=== PATIENT | male | born 1975 | race Caucasian/White ===

== ENCOUNTER 2023-01-05 15:07 | Emergency (ER) | payer OTHER, SELFPAY ==
[2023-01-05 15:25] VITALS: BP 139/81; PULSE 120; RESP 20; TEMP 37.2; O2SAT 100
[2023-01-05 15:26] VITALS: BP 139/81; PULSE 120; RESP 20; TEMP 37.2; O2SAT 100
--- NOTE | 2023-01-05 15:33 | ED.GENADULT ---
HPI - General Adult General Chief complaint: Extremity Injury, Lower Stated complaint: bilateral leg swelling Time Seen by Provider: 01/05/23 15:33 Source: patient Mode of arrival: ambulatory Limitations: no limitations History of Present Illness HPI narrative: 47 y/o male presented for c/o swelling from bilateral lower extremities to abdomen for 1 week. States lower abdomen feels tight and bloated. Denies scrotal swelling. States he has been elevating his legs after work and in the night, but denies any improvement in swelling in the morning. After a weekend of vomiting and diarrhea resulting in leg cramping, he admits to increasing water intake for about 3 weeks. He states he drinks approximately 88 oz of water a day. He denies increase in cough or shortness of breath from baseline. States he smokes about 1/2-1 pack per day, smokes marijuana. Drinks at least 2-3 beers or cocktails daily. Denies salt increase. He denies chest pain, palpitations, dizziness, decreased urine output, nausea, vomiting, diarrhea, fevers or chills. Endorses mother with CHF, Father with atrial flutter. No PCP. Related Data Home Medications Medication Instructions Recorded Confirmed No Home Medications 01/05/23 01/05/23 Allergies Allergy/AdvReac Type Severity Reaction Status Date / Time No Known Allergies Allergy Verified 01/05/23 15:26 Review of Systems Review of Systems: CONSTITUTIONAL: Denies body aches, fever, chills, or sweats. EYES: Denies visual changes, redness, or discharge. ENT: Denies rhinorrhea, congestion, sore throat, or otalgia. CARDIOVASCULAR: Denies chest pain, palpitations, Reports BLE edema. RESPIRATORY: Denies cough or dyspnea. GASTROINTESTINAL: Denies abdominal pain, nausea, vomiting, or diarrhea. GENITOURINARY: Denies change in urinary output SKIN: Denies rash, itching, or wounds. MUSCULOSKELETAL: Denies back pain, joint pain, or myalgia. NEUROLOGIC: Denies headache, numbness, tingling, or weakness. All systems reviewed & are unremarkable except as noted in HPI and below PMFSH Past Medical History Medical History (Updated 01/05/23 @ 16:09 by Heena Edgar APRN) Patient denies significant medical history Right ankle injury Family History Family History (Updated 04/10/23 @ 16:00 by Heena Edgar APRN) Mother CHF (congestive heart failure) Father Atrial flutter Social History Social History (Updated 01/05/23 @ 15:58 by Heena Edgar APRN) Smoking packs per day: 1 Smoking cigarettes per day: 20.0 Smoking status: Current some day smoker Alcohol intake: current Drinks per week: 20 Alcohol use details: 2-3 beers daily or 2-3 cocktails daily Substance use: current Substance use type: marijuana Currently Unemployed: No Comments At time of signature, I have reviewed and agree with nursing past medical, surgical, social and family history unless otherwise noted. Please see nursing chart for further information. There is no relevant family history pertinent to the presenting complaint Exam Narrative: GENERAL: Well-appearing, in no acute distress. HEAD: Normocephalic, atraumatic. EYES: EOMI. No redness or drainage. Conjunctivae normal. ENT: Mucous membranes pink and moist. No rhinorrhea. NECK: Normal AROM. Supple. CHEST: No respiratory distress. Clear to auscultation. HEART: Tachycardic and Regular, faint murmur appreciated. Normal peripheral pulses. ABDOMEN: Distended/round, nontender, normal active bowel sounds. EXTREMITIES: 3+ pitting BLE edema to hips. Normal range of motion. SKIN: Warm, dry, no rash. Capillary refill normal. Normal skin turgor. NEURO: No focal deficits. Alert and oriented x3. Gait steady. PSYCH: Normal affect. Course Course Emergency Course: Patient is aware of diagnosis, understands and agrees to treatment plan. Anticipatory guidance given. Portions of this record may have been created with voice recognition software Level o
== END 2023-01-05 15:52 | disposition short-term general hospital (02) ==
PROVIDERS: Emergency Provider Nurse Practitioner Family
DX: R60.0 Localized edema (principal); F17.210 Nicotine dependence, cigarettes, uncomplicated
CPT/HCPCS: 99212; G0463

== ENCOUNTER 2023-01-05 16:15 | Emergency (ER) | payer OTHER, SELFPAY ==
--- NOTE | ~2023-01-05 | US_ITS ---
EXAMINATION: US venous doppler [facility] DATE: 01/05/2023 17:01 INDICATION: Bilateral lower leg swelling . TECHNIQUE: Grayscale images without and with compression and Doppler images of the bilateral lower ex tremity veins were obtained. COMPARISON: None FINDINGS: The right common femoral vein, profunda (deep) femoral vein, femoral vein, popliteal vein, peroneal v ein, posterior tibial veins, gastrocnemius vein, and greater saphenous vein are patent. Leg edema. The left common femoral vein, profunda (deep) femoral vein, femoral vein, popliteal vein, peroneal v ein, posterior tibial veins, gastrocnemius vein, and greater saphenous vein are patent. Leg edema. IMPRESSION: 1. Patent bilateral lower extremity veins. No evidence of deep venous thrombosis. Reviewed, dictated and finalized at location K. IMPRESSION: 1. Patent bilateral lower extremity veins. No evidence of deep venous thrombos is.
--- NOTE | ~2023-01-05 | XR_ITS ---
EXAMINATION: XR chest 2V Exam Date/Time: 01/05/2023 17:15 CDT HISTORY: BL edema, SWELLING FOR 6 DAYS, SMOKER Comparison: 04/07/2019. RESULT: Lines, tubes, and devices: None. Lungs and pleura: Diffuse reticulonodular opacities with cuffing. Left posterior angle blunting. Cardiomediastinal silhouette: Stable. Other: No acute osseous or upper abdominal finding. IMPRESSION: Respiratory bronchiolitis. Small left pleural effusion. Reviewed, dictated and finalized at location K.
[2023-01-05 16:27] VITALS: BP 150/86; PULSE 119; RESP 16; TEMP 37.2; O2SAT 100
[2023-01-05 16:48] LABS: Basophils Absolute Auto 0.2 K/mm3 (0.0-0.1); Basophils Percent Auto 1.5 % (0.2-1.2); Eosinophils Absolute Auto 0.7 K/mm3 (0-0.3); Eosinophils Percent Auto 6.6 % (0-4.4); Hematocrit 29.2 % (42.0-52.0); Hemoglobin 8.9 g/dL (14.0-18.0); Immature Granulocyte Absolute 0.05 K/mm3 (0.00-0.031); Immature Granulocyte Percent A 0.5 % (0-0.5); Lymphocytes Absolute Auto 2.47 K/mm3 (0.9-3.2); Lymphocytes Percent Auto 23.9 % (18.3-44.2); Mean Corpuscular HGB Conc 30.5 g/dl (32-36); Mean Corpuscular Hemoglobin 27.1 pg (26-34); Mean Platelet Volume 9.2 fl (7.4-10.4); Monocytes Absolute Auto 1.2 K/mm3 (0.1-0.6); Monocytes Percent Auto 11.2 % (2.6-8.5); Neutrophils Absolute Auto 5.8 K/mm3 (1.3-6.7); Neutrophils Percent Auto 56.3 % (45.5-73.1); Platelet Count Result 204 k/mm3 (150-375); Red Blood Count 3.28 M/mm3 (4.6-6.20); White Blood Count 10.3 K/mm3 (4.5-10.0)
[2023-01-05 16:58] LABS: Anion Gap 5 mmol/L (8-16); Blood Urea Nitrogen 6 mg/dL (9-20); Calcium 7.6 mg/dL (8.4-10.2); Carbon Dioxide 26 mmol/L (22-30); Chloride 105 mmol/L (98-107); Estimated Glomerular Filt Rate > 60; Glucose 100 mg/dL (65-110); Potassium 3.9 mmol/L (3.4-5.0); Sodium 136 mmol/L (137-145)
[2023-01-05 17:03] LABS: INR 1.2; Prothrombin Time 14.9 Seconds (11.1-14.7)
[2023-01-05 17:04] LABS: Partial Thromboplastin Time 32.7 SECONDS (22.3-36.8)
[2023-01-05 19:24] LABS: NT Pro B Type Natriuretic Pept 145 pg/mL (19.9-100)
[2023-01-05 19:46] VITALS: BP 150/96; PULSE 117; RESP 20; O2SAT 100
--- NOTE | 2023-01-05 20:01 | ED.GENADULT ---
HPI - General Adult General Chief complaint: Extremity Problem,Nontraumatic Stated complaint: Lower limb swelling Time Seen by Provider: 01/05/23 19:35 Source: patient Mode of arrival: ambulatory Limitations: no limitations History of Present Illness HPI narrative: 47-year-old otherwise healthy here with complaints of bilateral leg swelling for past few days to weeks. He states he is on the feet most of the time. He denies any shortness of breath, no chest pain. She states that he has not seen a doctor for several years he just got his insurance through his employment he is going to find a new doctor. Denies any alcohol or liver or kidney problems. Onset (ago): week(s) (1) Radiation: non-radiation Relieving factors: none Exacerbating factors: none Associated symptoms: denies other symptoms Related Data Allergies Allergy/AdvReac Type Severity Reaction Status Date / Time No Known Allergies Allergy Verified 01/05/23 15:26 Review of Systems Review of Systems: All systems reviewed & are unremarkable except as noted in HPI and below Constitutional: Constitutional: Reports no additional constitutional complaints Eyes: Eyes: Reports no additional eye complaints ENT: Reports system reviewed and no additional complaints, except as documented Cardiovascular: Cardiovascular: Reports no additional cardiovascular complaints Respiratory: Respiratory: Reports no additional respiratory complaints Gastrointestinal: Gastrointestinal: Reports no additional gastrointestinal complaints Musculoskeletal: Musculoskeletal: Reports as per HPI [facility] Past Medical History Medical History Patient denies significant medical history Right ankle injury Family History Family History Mother CHF (congestive heart failure) Father Atrial flutter Social History Social History Smoking packs per day: 1 Smoking cigarettes per day: 20.0 Smoking status: Current some day smoker Alcohol intake: current Drinks per week: 20 Alcohol use details: 2-3 beers daily or 2-3 cocktails daily Substance use: current Substance use type: marijuana Currently Unemployed: No Exam Narrative: GENERAL: Well-appearing, well-nourished, and in no acute distress. HEAD: Normocephalic, atraumatic. EYES: PERRLA and EOMI NECK: Supple. CHEST: Clear to auscultation. No respiratory distress. HEART: Regular rate and rhythm. No murmur heard. Normal peripheral pulses. ABDOMEN: Soft, nontender, nondistended, normal active bowel sounds. EXTREMITIES: Normal range of motion. 2+ edema SKIN: Warm, dry, no rash. NEURO: No focal deficits. Alert and oriented x3. PSYCH: Normal mood and affect. Course Vital Signs Vital signs: Vital Signs Temperature 37.2 C 01/05/23 16:27 Pulse Rate 119 H 01/05/23 16:27 Respiratory Rate 16 01/05/23 16:27 Blood Pressure 150/86 H 01/05/23 16:27 Pulse Oximetry 100 01/05/23 16:27 Oxygen Delivery Room Air 01/05/23 16:27 Temperature 37.2 C 01/05/23 16:27 Pulse Rate 117 H 01/05/23 19:46 Respiratory Rate 20 01/05/23 19:46 Blood Pressure 150/96 H 01/05/23 19:46 Pulse Oximetry 100 01/05/23 19:46 Oxygen Delivery Room Air 01/05/23 16:27 Medical Decision Making [facility] Narrative Medical decision making narrative: Patient does have 2+ edema bilaterally otherwise his exam is unremarkable his lab work normal chest x-ray not consistent with CHF. Venous Doppler studies bilaterally with normal. We will start him on lisinopril with hydrochlorothiazide which will help with blood pressure and also bring the swelling down. Vital Signs Vital Signs: Vital Signs Temperature 37.2 C 01/05/23 16:27 Pulse Rate 119 H 01/05/23 16:27 Respiratory Rate 16 01/05/23 16:27 Blood Pressure 150/86 H 01/05/23 16:27 Pulse Oximetry 100 01/05/23 16:2
[2023-01-05 20:15] VITALS: BP 139/80; PULSE 115; RESP 23; O2SAT 100
== END 2023-01-05 20:26 | disposition home or self-care (01) ==
PROVIDERS: Emergency Medicine; Physician Assistant; Emergency Provider Family Medicine
DX: R60.0 Localized edema (principal); I10 Essential (primary) hypertension; F17.210 Nicotine dependence, cigarettes, uncomplicated
CPT/HCPCS: 36415; 71046; 80048; 83880; 85025; 85610; 85730; 93970; 99284